=== PATIENT | male | born 1985 | race Hispanic/Latino ===

== ENCOUNTER 2017-10-30 22:10 | Emergency (ER) | payer OTHER ==
[~2017-10-30] VITALS: Ht 188 cm; Wt 117.9 kg
--- NOTE | 2017-10-30 23:09 | Diagnostic Imaging Report ---
EXAMINATION: CHEST 2 VIEWS INDICATION: Protracted cough for 3 days COMPARISON: None FINDINGS: TUBES and LINES: None. LUNGS: Lungs are well inflated. Lungs are clear. There is no evidence of pneumonia or pulmonary edema. PLEURA: No pleural effusion or pneumothorax. HEART AND MEDIASTINUM: The cardiomediastinal silhouette is unremarkable. BONES AND SOFT TISSUES: No acute osseous lesion. Soft tissues are unremarkable. UPPER ABDOMEN: No free air under the diaphragm. IMPRESSION: No acute thoracic abnormality. Signed by: Dr. Hayden Matt M.D. on 10/30/2017 11:06 PM
== END 2017-10-31 00:52 | disposition home or self-care (01) ==
LOC: ER 22:10
DX: R05 Cough (principal); J20.9 Acute bronchitis, unspecified
CPT/HCPCS: 71046; 99283

== ENCOUNTER 2018-01-25 19:08 | Emergency (ER) | payer OTHER ==
[~2018-01-25] VITALS: Ht 188 cm; Wt 117.9 kg
[2018-01-25] MEDS ORDERED: LIDOCAINE HCL 1% LOCAL INJ 20 ML VIAL INJ ONE (20:00)
[2018-01-25] MEDS ORDERED: CLINDAMYCIN PHOS 600 MG/ 4 ML VIAL IM ONE (20:00)
[2018-01-25 21:40] VITALS: BP 137/90
== END 2018-01-25 21:47 | disposition home or self-care (01) ==
LOC: ER 19:08
DX: L02.211 Cutaneous abscess of abdominal wall (principal); F17.210 Nicotine dependence, cigarettes, uncomplicated
CPT/HCPCS: 99283